=== PATIENT | female | born 1955 | race Caucasian/White ===

== ENCOUNTER → 2020-06-28 | Outpatient (CLI) | payer MEDICARE ==
--- NOTE | 2020-06-28 11:58 | KCIC ---
Bilateral digital screening mammograms with 3-D tomosynthesis: Reason for examination: Routine screening. Comparison is made to previous studies dated between 01/03/2016 and 02/06/2012. Bilateral mammograms in CC and oblique projections were obtained with 2-D imaging and 3-D tomosynthes is imaging on a Siemens Inspiration unit and reviewed on the workstation. Interpretation was made cricket murphy the benefit of CAD. The skin and nipples show no abnormalities. No abnormal axillary lymph nodes are seen. The breast par enchyma shows scattered fatty and fibroglandular density. (Breast density: Category B.) There appear to be new clustered calcifications developing anteriorly at these 1:00 position of the left breast. F urther evaluation with coned magnification views is recommended. 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 There are no other new dominant masses, suspicious calcificatio ns or architectural distortion. Impression: New clustered calcifications anteriorly in the 1:00 position of the left breast. Recommend further ev aluation with coned magnification views. BI-RAD Category 0: Incomplete. Needs additional imaging evaluation. "Our facility is accredited by the [employer] Mammography Program." This patient's information has been entered into a reminder system for the patient to be notified wit h the results of her examination and a target date for the next mammogram. Electronically signed by: Rossana Lerner MD (06/28/2020 11:56 AM) [id number]
== END ==
LOC: KCIC MAMMO 08:25
PROVIDERS: ATTEND Family Medicine
DX: Z12.31 Encounter for screening mammogram for malignant neoplasm of breast (principal); N64.89 Other specified disorders of breast
CPT/HCPCS: 77063; 77067

== ENCOUNTER → 2020-07-24 | Outpatient (CLI) | payer MEDICARE ==
[~2020-07-24] MED LIST: LIDOCAINE 2%/EPI 1:100,000 20 ML VIAL. INJ ONE
--- NOTE | 2020-07-24 10:59 | RAD ---
MG DIAGNOSTICUNILAT MAMMO, MG STERO NEEDLE LOC BRST LT Clinical Indication: Upper outer anterior left breast microcalcifications. Comparison: Diagnostic left mammogram July 04, 2020. Procedure: The risks including bleeding, infection, damage to blood vessel, and pain; alternatives, and benefits of the procedure are discussed with the patient. Written informed consent is obtained. A timeout pro cedure was performed. Patient is positioned upright. A lateral approach is utilized. 3-D mammogram views were obtained. Ski n site is clean in normal sterile fashion. 1% lidocaine is used for superficial anesthesia. 2 percent lidocaine with epinephrine is used for deep anesthesia. Using sterile technique and 3-D guidance, vacuum assisted core biopsy samples were obtained. Biopsy m arker is deployed. The needle is removed. Hemostasis achieved. Patient tolerated the procedure well. There is no immediate complication. Specimen radiograph demonstrates multiple microcalcifications in the sample. Postprocedure CC and ML mammogram views obtained. The biopsy clip is in the region of the previously seen microcalcifications. IMPRESSION: Tomosynthesis guided biopsy of microcalcifications. Pathology is pending. Electronically signed by: Giovanni Jaimes MD (07/24/2020 10:57 AM) [id number]
--- NOTE | 2020-07-25 14:08 | PATHOLOGY ---
[facility] Accession Number: [id number] . 01 Material submitted: . breast - LEFT BREAST TISSUE. Modifiers: left . 01 Clinical history: . LEFT BREAST CALCIFICATIONS . LEFT BREAST STEREOTACTIC BIOPSY . 02 Diagnosis: Breast tissue, left breast stereotactic needle biopsies: - Focal apocrine metaplasia with numerous microcalcifications. (JPM:condenser tester; 07/25/2020) MBR 07/25/2020 1205 Local . 02 Comment: Sections of the left breast stereotactic needle biopsy predominantly reveal fatty breast tissue. There are a few slightly dilated ducts and microcysts showing apocrine metaplasia. There are numerous microcalcifications within the lumen of these ducts and microcysts. There is no atypia or evidence of malignancy. (JPM:condenser tester; 07/25/2020) . 02 Electronically signed: . Himanshu Russell MD, Pathologist NPI- [id number] . 01 Gross description: . The specimen is received in formalin, labeled "Madison [place], left breast tissue". Received within a plastic cassette are multiple needle cores of fibrofatty tissue measuring 2.5 x 2.3 x 0.5 cm in aggregate dimensions. The specimen is submitted entirely in cassettes A1 through A3. The cold ischemic time is 5 minutes. The total formalin fixation time is 12 hours and 30 minutes. (CAA; 07/24/2020) QAC/QAC 07/24/2020 1523 Local . 02 Pathologist provided ICD-10: N60.82 . 02 CPT . 317171 Specimen Comment: A courtesy copy of this report has been sent to [phone], [phone] Specimen Comment: [id number] Specimen Comment: Report sent to / DR JI Performed at: [address] [facility] [address], [place], [place] [id number] MD Eric Vega MD Phone: [phone] Performed at: 02 [facility] [address] [place], [place] [id number] MD Himanshu Russell MD Phone: [phone]
== END | disposition home or self-care (01) ==
LOC: MAMMO 08:08
PROVIDERS: ATTEND Family Medicine
DX: R92.0 Mammographic microcalcification found on diagnostic imaging of breast (principal); N60.82 Other benign mammary dysplasias of left breast; Z79.899 Other long term (current) drug therapy
CPT/HCPCS: 19081; 77065; J3490

== ENCOUNTER 2020-11-25 20:55 | Observation (INO) | payer MEDICARE ==
[~2020-11-25] VITALS: Ht 157.5 cm; Wt 76.6 kg
[2020-11-25] MEDS ORDERED: ADENOSINE 6 MG/2 ML VIAL. IV ONE ×4 (21:06→22:15)
[2020-11-25] MEDS ORDERED: IV NORMAL SALINE 1000ML BAG 1,000 ML IV ONE (21:15)
[2020-11-25 21:19] LABS: BASO # 0.1 x10^3/uL (0.0-0.2); BASO % 1 % (0-3); EOS # 0.1 x10^3/uL (0.0-0.7); EOS % 1 % (0-3); HEMATOCRIT 45.8 % (36.0-47.0); HEMOGLOBIN 16.2 g/dL (12.0-15.5); LYMPH # 2.9 x10^3/uL (1.0-4.8); LYMPH % 22 % (24-48); MEAN CORPUSCULAR HEMOGLOBIN 33 pg (25-35); MEAN CORPUSCULAR HGB CONC 35 g/dL (31-37); MEAN CORPUSCULAR VOLUME 93 fL (79-100); MONO # 1.1 x10^3/uL (0.0-1.1); MONO % 8 % (0-9); NEUT % 68 % (31-73); PLATELET COUNT 268 x10^3/uL (140-400); RED BLOOD COUNT 4.96 x10^6/uL (3.50-5.40); RED CELL DISTRIBUTION WIDTH 12.9 % (11.5-14.5); WHITE BLOOD COUNT 13.3 x10^3/uL (4.0-11.0)
[2020-11-25 21:37] LABS: CALCIUM 9.3 mg/dL (8.5-10.1); CREATININE 1.1 mg/dL (0.6-1.0); GFR 49.7; POTASSIUM 3.9 mmol/L (3.5-5.1)
--- NOTE | 2020-11-25 21:40 | PHYS DOC ---
Past Medical History Past Medical History: No Pertinent History Past Surgical History: No Surgical History Smoking Status: Never Smoker Alcohol Use: None Drug Use: None General Adult EDM: Chief Complaint: RAPID HEART RATE Problems: (1) Palpitations HPI: HPI: 65-year-old female with no past medical history presents to the emergency department complaining of palpitations that occurred about 1 hour ago with sudden onset. She reports that she was feeling her normal health in the palpitations started. They are not associated with any chest pain or shortness of breath although she feels very anxious at this time. She has had similar symptoms in the past that resolved spontaneously without medical attention. She denies any alcohol or drug use. The patient denies nausea, vomiting, fever, chi lls, chest pain, shortness of breath, abdominal pain, urinary symptoms, cough, recent trauma, or any other complaints. Review of Systems: Review of Systems: Constitutional: Denies fever or chills. Eyes: Denies change in vision, pain. HENT: Denies congestion or sore throat. Respiratory: Denies cough or shortness of breath. Cardiovascular: Denies chest pain, admits to palpitations. GI: Denies abdominal pain, nausea. : Denies change in urination, dysuria. Musculoskeletal: Denies extremity pain, or trauma. Skin: Denies rash, skin change. Neurologic: Denies headache, focal weakness. Psychiatric: Denies anxiety, denies depression. All other systems reviewed as negative except for what was mentioned in the HPI. Heart Score: C/O Chest Pain: No Risk Factors: Risk Factors: DM, Current or recent (<one month) smoker, HTN, HLP, family history of CAD, obesity. Risk Scores: Score 0 - 3: 2.5% MACE over next 6 weeks - Discharge Home Score 4 - 6: 20.3% MACE over next 6 weeks - Admit for Clinical Observation Score 7 - 10: 72.7% MACE over next 6 weeks - Early Invasive Strategies Family History: Family History: Negative Current Medications: My Orders - ELFEGO JONES DO Procedure Category Date Status Time Vital Signs Monitoring ER 11/25/20 Transmitted 21:08 Blood Pressure ER 11/25/20 Transmitted Monitoring 21:08 Cardiac Monitoring ER 11/25/20 Transmitted 21:08 Basic Metabolic Panel LAB 11/25/20 In Process 21:08 Cbc W Autodiff LAB 11/25/20 Complete 21:08 Magnesium LAB 11/25/20 In Process 21:08 Thyroid Stim Hormone LAB 11/25/20 In Process (Tsh) 21:08 Portable Chest 1v RAD 11/25/20 Logged 21:08 Lorazepam Inj (Ativan PHA 11/25/20 Complete Inj) 21:15 Nt-Pro Bnp LAB 11/25/20 In Process 21:08 Troponini LAB 11/25/20 In Process 21:08 Troponini LAB 11/26/20 Verified 00:08 Troponini LAB 11/26/20 Verified 03:08 12 Lead Ekg EKG 11/25/20 Logged 21:08 12 Lead Ekg EKG 11/25/20 Logged 21:38 Adenosine (Adenocard) PHA 11/25/20 Complete 21:15 Iv Normal Saline PHA 11/25/20 In Process 1000ml Bag (Iv Sodium 21:15 Diltiazem Iv Push PHA 11/25/20 Logged (Cardizem Iv Push) 21:30 Allergies: Allergies: Allergies Coded Allergies Type Severity Reaction Last Updated Verified No Known Drug Allergies 07/24/20 No Physical Exam: PE: Constitutional: Moderate distress, appears anxious, nontoxic appearance. HENT: Atraumatic, bilateral external ears normal, nose normal. Eyes: PERRLA, EOMI, conjunctiva normal, no discharge. Neck: Normal range of motion, supple, no stridor. Cardiovascular: Markedly tachycardic, 1+ radial pulses capillary refill less than 2 seconds Lungs & Thorax: No respiratory distress, symmetrical expansion. Bilateral breath sounds clear to auscultation Abdomen: Soft, no tenderness Skin: Warm, dry. Extremities: No tenderness, no cyanosis, ROM intact, no edema. Neurologic: Alert and oriented X 3, normal motor function, normal sensory function, no focal deficits noted. Non ataxic gait. GCS 15. Psychologic: Affect normal, judgment normal, mood normal. Current Patient Data: Labs: Laboratory Tests Test 11/25/20 21:10 White Blood Count 13.3 x10^3/uL (4.0-11.0) Red Blood Count 4.96 x10^6/uL (3.50-5.40) Hemoglobin 16.2 g/dL (12.0-15.5) Hematocrit 45.8 % (36.0-47.0) Mean Corpuscular Volume 93 fL (79-100) Mean Corpuscular Hemoglobin 33 pg (25-35) Mean Corpuscular Hemoglobin Concent 35 g/dL (31-37) Red Cell Distribution Width 12.9 % (11.5-14.5) Platelet Count 268 x10^3/uL (140-400) Neutrophils (%) (Auto) 68 % (31-73) Lymphocytes (%) (Auto) 22 % (24-48) Monocytes (%) (Auto) 8 % (0-9) Eosinophils (%) (Auto) 1 % (0-3) Basophils (%) (Auto) 1 % (0-3) Neutrophils # (Auto) 9.0 x10^3/uL (1.8-7.7) Lymphocytes # (Auto) 2.9 x10^3/uL (1.0-4.8) Monocytes # (Auto) 1.1 x10^3/uL (0.0-1.1) Eosinophils # (Auto) 0.1 x10^3/uL (0.0-0.7) Basophils # (Auto) 0.1 x10^3/uL (0.0-0.2) Sodium Level 141 mmol/L (136-145) Potassium Level 3.9 mmol/L (3.5-5.1) Chloride Level 104 mmol/L (98-107) Carbon Dioxide Level 23 mmol/L (21-32) Anion Gap 14 (6-14) Blood Urea Nitrogen 24 mg/dL (7-20) Creatinine 1.1 mg/dL (0.6-1.0) Estimated GFR (Cockcroft-Gault) 49.7 Glucose Level 236 mg/dL (70-99) Calcium Level 9.3 mg/dL (8.5-10.1) Magnesium Level 2.0 mg/dL (1.8-2.4) Troponin I Quantitative < 0.017 ng/mL (0.000-0.055) JA-Ahk-L-Type Natriuretic Peptide 133 pg/mL (0-124) Thyroid Stimulating Hormone (TSH) 3.670 uIU/mL (0.358-3.74) Vital Signs: Vital Signs Date Time Temp Pulse Resp B/P (MAP) Pulse Ox O2 Delivery O2 Flow Rate FiO2 11/25/20 21:21 215 147/77 EKG: EK: Supraventricular narrow complex tachycardia rate of 216. Impression: SVT interpreted by Elfego miller DO 2124: Conversion to normal sinus rhythm after diltiazem was noted, there are no ischemic ST-T wave changes. Interpreted by me Elfego Jones DO . Radiology/Procedures: Radiology/Procedures: No airspace disease, infiltrates or consolidations, lung parker clear. No pneumothorax or pleural effusion. Cardiac silhouette within normal limits. No widening of mediastinum. No obvious free air seen. Impression: normal CXR. Interpreted by Elfego miller D.O. Course & Med Decision Making: Course & Med Decision Making Patient was seen immediately upon entrance to the emergency department for a rapid heart rate over 200. An EKG was emergently obtained which showed a narrow complex supraventricular tachycardia at regular intervals. She was immediately placed on the pads, laboratory monitor, her blood pressure within normal limits, she was protecting her airway with GCS 15. Vagal maneuvers including bearing down, blowing into a syringe were attempted and unsuccessful. Patient had bilateral AC large-bore IVs placed. Adenosine 6 mg was attempted and was unsuccessful, 12 mg was then attempted and also unsuccessful. The patient was then given diltiazem 15 mg IV slow push with good results. court monitor shows conversion to normal sinus rhythm less than 100 bpm, EKG confirms with no ischemic changes seen. I discussed case with Dr. Hedrick who accepted the patient to telemetry monitored bed. Cardiology consult was placed. Patient remained stable after diltiazem and remains on the laboratory monitor. Cardioversion Procedure: Consent: The patient provided verbal consent for this procedure. Pre-Medication: None Procedure: The patient was placed in the supine position and the chest area was exposed. The cardioversion pads were applied in the standard manner and configuration. The patient was given adenosine 6 mg IV which was unsuccessful and then she was given 12 mg IV which was also unsuccessful. She was then given Cardizem 15 mg IV push which was successful with resolution to normal sinus rhythm. Blood pressure remained stable during the procedure. The patient tolerated the procedure well. Complications: none. Indication: Supraventricular tachycardia, narrow complex. Critical care time was 40 minutes which includes time at bedside, spent in discussion of patient's care with specialists and/or family members, with interpretation of laboratory and/or radiological studies and is exclusive of procedures. Departure Departure Impression: Primary Impression: SVT (supraventricular tachycardia) Disposition: ADMITTED INPATIENT (Dr. Hedrick) Condition: IMPROVED Referrals: NATHALIE JUARES MD (PCP) ELFEGO JONES DO Nov 25, 2020 21:40
[2020-11-25] MEDS ORDERED: ONDANSETRON PF 4 MG/2 ML VIAL. IVP PRN (21:45)
[2020-11-25] MEDS ORDERED: ACETAMINOPHEN 325 MG TABLET. PO PRN (21:45)
--- NOTE | 2020-11-25 22:19 | EKG ---
[facility] [address] [place] [address] Test Date: 2020-11-25 Test Time: 21:25:52 Pat Name: RICKIE PEREZ Department: Room: Gender: F [employer]: : 1955 Requested By: JOJO BRAVO Order Number: [id number] Reading MD: Measurements Intervals [place] Rate: 97 P: -26 [place]: 160 QRS: 16 QRSD: 72 T: 70 QT: 312 QTc: 400 Interpretive Statements SINUS RHYTHM ST & T ABNORMALITY, CONSIDER ANTEROLATERAL ISCHEMIA OR LEFT VENTRICULAR STRAIN ABNORMAL ECG RI6.02 Compared to ECG 11/25/2020 21:24:18 No significant changes
--- NOTE | 2020-11-25 22:36 | RAD ---
Exam Date: 11/25/2020 9:31 PM XR CHEST 1V Indication: Reason: palpitations / Spl. Instructions: / History: . FINDINGS/ IMPRESSION: The cardiac silhouette and pulmonary vasculature are within normal limits. There is no focal consolidation, pleural effusion or pneumothorax. The visualized osseous structures are intact. Electronically signed by: Damian Orellana MD (11/25/2020 10:33 PM) [facility]
[2020-11-26 03:53] LABS: BASO % 1 % (0-3); EOS # 0.1 x10^3/uL (0.0-0.7); EOS % 1 % (0-3); HEMATOCRIT 38.5 % (36.0-47.0); HEMOGLOBIN 13.7 g/dL (12.0-15.5); LYMPH # 2.5 x10^3/uL (1.0-4.8); LYMPH % 29 % (24-48); MEAN CORPUSCULAR HEMOGLOBIN 33 pg (25-35); MEAN CORPUSCULAR HGB CONC 36 g/dL (31-37); MEAN CORPUSCULAR VOLUME 92 fL (79-100); MONO % 12 % (0-9); NEUT % 58 % (31-73); PLATELET COUNT 194 x10^3/uL (140-400); RED BLOOD COUNT 4.18 x10^6/uL (3.50-5.40); RED CELL DISTRIBUTION WIDTH 12.8 % (11.5-14.5); WHITE BLOOD COUNT 8.5 x10^3/uL (4.0-11.0)
[2020-11-26 04:04] LABS: CALCIUM 8.3 mg/dL (8.5-10.1); CREATININE 0.8 mg/dL (0.6-1.0); GFR 71.8; POTASSIUM 4.1 mmol/L (3.5-5.1)
--- NOTE | 2020-11-26 07:36 | PDOC1 ---
History and Physical Date of Service: DOS: DATE: 11/26/20 TIME: 07:31 Chief Complaint: Chief Complain: palpitations History of Present Illness: HPI: 65-year-old female with no past medical history presents to the emergency department complaining of palpitations that occurred about 1 hour ago with sudden onset. She reports that she was feeling her normal health in the palpitations started. They are not associated with any chest pain or shortness of breath although she feels very anxious at this time. In the past patient had similar episodes about 2 years ago on 2 occasions. All of those episodes where she had similar symptoms reverted spontaneously without any medication. She denies any alcohol or drug use. The patient denies nausea, vomiting, fever, chills, chest pain, shortness of breath, abdominal pain, urinary symptoms, cough, recent trauma, or any other complaints. ED course: Patient was seen immediately upon entrance to the emergency department for a rapid heart rate over 200. An EKG was emergently obtained w hich showed a narrow complex supraventricular tachycardia at regular intervals. She was immediately placed on the pads, school lunch monitor, her blood pressure within normal limits. Vagal maneuvers including bearing down, blowing into a syringe were attempted and unsuccessful. Patient had bilateral AC large-bore IVs placed. Adenosine 6 mg was attempted and was unsuccessful, 12 mg was then attempted and also unsuccessful. The patient was then given diltiazem 15 mg IV slow push with good results. engine monitor shows conversion to normal sinus rhythm less than 100 bpm, EKG confirms with no ischemic changes seen. Admitted to hospitalist services and cardiology was consulted. Past Medical/Surgical History: PMH/PSH: Past Medical History: Migraines Past Surgical History: No Surgical History Allergies: Allergies: Coded Allergies: No Known Drug Allergies (Unverified , 07/24/20) Family History: Family History: Reviewed with no relevant history Social History: Social History: Smoking Status: Never Smoker Alcohol Use: None Drug Use: None Current Medications: Current Medications Current Medications Adenosine (Adenocard) 6 mg STK-MED ONCE IV ; Start 11/25/20 at 21:06; Stop 11/25/20 at 21:06; Status DC Adenosine (Adenocard) 6 mg STK-MED ONCE IV ; Start 11/25/20 at 21:06; Stop 11/25/20 at 21:06; Status DC Lorazepam (Ativan Inj) 1 mg 1X ONCE IV ; Start 11/25/20 at 21:15; Stop 11/25/20 at 21:29; Status DC Adenosine (Adenocard) 6 mg 1X ONCE IV Last administered on 11/25/20at 21:14; Start 11/25/20 at 21:15; Stop 11/25/20 at 21:16; Status DC Sodium Chloride 1,000 ml @ 1,000 mls/hr 1X ONCE IV Last administered on 11/25/20at 21:30; Start 11/25/20 at 21:15; Stop 11/25/20 at 22:14; Status DC Diltiazem HCl (Cardizem Iv Push) 25 mg STK-MED ONCE .ROUTE ; Start 11/25/20 at 21:18; Stop 11/25/20 at 21:19; Status DC Diltiazem HCl (Cardizem Iv Push) 15 mg 1X ONCE IVP Last administered on 11/25/20at 21:21; Start 11/25/20 at 21:30; Stop 11/25/20 at 21:34; Status DC Ondansetron HCl (Zofran) 4 mg PRN Q8HRS PRN IVP NAUSEA/VOMITING; Start 11/25/20 at 21:45; Stop 11/26/20 at 21:44 Acetaminophen (Tylenol) 650 mg PRN Q4HRS PRN PO FEVER > 100.3'F; Start 11/25/20 at 21:45; Stop 11/26/20 at 21:44 Adenosine (Adenocard) 12 mg 1X ONCE IV Last administered on 11/25/20at 21:17; Start 11/25/20 at 22:15; Stop 11/25/20 at 22:16; Status DC Enoxaparin Sodium (Lovenox Per Pharmacy Prophylaxis Dosing) 1 each PRN DAILY PRN MC SEE COMMENTS; Start 11/25/20 at 22:30 Enoxaparin Sodium (Lovenox 40mg Syringe) 40 mg DAILY SQ ; Start 11/26/20 at 09:00 ROS: Review of Systems Review of System REVIEW OF SYSTEMS: GENERAL: Denies weakness SKIN: No bruising, hair changes or rashes. EYES: No blurred, double or loss of vision. NOSE AND THROAT: No history of nosebleeds, hoarseness or sore throat. HEART: No history of palpitations, chest pain or shortness of breath on exertion. LUNGS: Denies cough, hemoptysis, wheezing or shortness of breath. GASTROINTESTINAL: Denies changes in appetite, nausea, vomiting, diarrhea or constipation. GENITOURINARY: No history of frequency, urgency, hesitancy or nocturia. NEUROLOGIC: Denies history of numbness, tingling, or tremor. PSYCHIATRIC: No history of panic, anxiety or depression. ENDOCRINE: No history of heat or cold intolerance, polyuria or polydipsia. EXTREMITIES: Denies joint pain, pain on walking or stiffness. Physical Exam: Vital Signs: Vital Signs Date Time Temp Pulse Resp B/P (MAP) Pulse Ox O2 Delivery O2 Flow Rate FiO2 11/26/20 07:01 78 20 96 11/25/20 21:21 147/77 11/25/20 20:55 98.4 Room Air 98.4 Physcial Exam: General: Well developed, well nourished, no acute distress, well appearing HEENT: Pupils equally round and reactive to light, EOMI, no discharge, normal conjunctiva Neck: Supple, no nuchal rigidity, no JVD, trachea midline, no tenderness Cardiac: RRR, no murmurs, no gallops, no rubs Chest/Lungs: CTAB, no wheeze, no rhonchi, no crackles Abdomen: soft, non-distended, no guarding, no peritoneal signs, non-tender Back: No tenderness Extremities: no edema, pulses intact, non-tender,capillary refill <3 sec bilateral upper and lower extremities, Neuro: Alert and oriented x 4, no focal deficits, normal speech Labs: Labs: Laboratory Tests Test 11/25/20 21:10 11/25/20 22:55 11/26/20 00:30 11/26/20 03:20 White Blood Count 13.3 x10^3/uL (4.0-11.0) 8.5 x10^3/uL (4.0-11.0) Red Blood Count 4.96 x10^6/uL (3.50-5.40) 4.18 x10^6/uL (3.50-5.40) Hemoglobin 16.2 g/dL (12.0-15.5) 13.7 g/dL (12.0-15.5) Hematocrit 45.8 % (36.0-47.0) 38.5 % (36.0-47.0) Mean Corpuscular Volume 93 fL (79-100) 92 fL (79-100) Mean Corpuscular Hemoglobin 33 pg (25-35) 33 pg (25-35) Mean Corpuscular Hemoglobin Concent 35 g/dL (31-37) 36 g/dL (31-37) Red Cell Distribution Width 12.9 % (11.5-14.5) 12.8 % (11.5-14.5) Platelet Count 268 x10^3/uL (140-400) 194 x10^3/uL (140-400) Neutrophils (%) (Auto) 68 % (31-73) 58 % (31-73) Lymphocytes (%) (Auto) 22 % (24-48) 29 % (24-48) Monocytes (%) (Auto) 8 % (0-9) 12 % (0-9) Eosinophils (%) (Auto) 1 % (0-3) 1 % (0-3) Basophils (%) (Auto) 1 % (0-3) 1 % (0-3) Neutrophils # (Auto) 9.0 x10^3/uL (1.8-7.7) 5.0 x10^3/uL (1.8-7.7) Lymphocytes # (Auto) 2.9 x10^3/uL (1.0-4.8) 2.5 x10^3/uL (1.0-4.8) Monocytes # (Auto) 1.1 x10^3/uL (0.0-1.1) 1.0 x10^3/uL (0.0-1.1) Eosinophils # (Auto) 0.1 x10^3/uL (0.0-0.7) 0.1 x10^3/uL (0.0-0.7) Basophils # (Auto) 0.1 x10^3/uL (0.0-0.2) 0.0 x10^3/uL (0.0-0.2) Sodium Level 141 mmol/L (136-145) 145 mmol/L (136-145) Potassium Level 3.9 mmol/L (3.5-5.1) 4.1 mmol/L (3.5-5.1) Chloride Level 104 mmol/L (98-107) 112 mmol/L (98-107) Carbon Dioxide Level 23 mmol/L (21-32) 24 mmol/L (21-32) Anion Gap 14 (6-14) 9 (6-14) Blood Urea Nitrogen 24 mg/dL (7-20) 21 mg/dL (7-20) Creatinine 1.1 mg/dL (0.6-1.0) 0.8 mg/dL (0.6-1.0) Estimated GFR (Cockcroft-Gault) 49.7 71.8 Glucose Level 236 mg/dL (70-99) 98 mg/dL (70-99) Calcium Level 9.3 mg/dL (8.5-10.1) 8.3 mg/dL (8.5-10.1) Magnesium Level 2.0 mg/dL (1.8-2.4) Troponin I Quantitative < 0.017 ng/mL (0.000-0.055) 0.530 ng/mL (0.000-0.055) 1.176 ng/mL (0.000-0.055) DY-Szv-T-Type Natriuretic Peptide 133 pg/mL (0-124) Thyroid Stimulating Hormone (TSH) 3.670 uIU/mL (0.358-3.74) SARS-CoV-2 Antigen (Rapid) Negative (NEGATIVE) Laboratory Tests Test 11/25/20 21:10 11/25/20 22:55 11/26/20 00:30 11/26/20 03:20 White Blood Count 13.3 x10^3/uL (4.0-11.0) 8.5 x10^3/uL (4.0-11.0) Red Blood Count 4.96 x10^6/uL (3.50-5.40) 4.18 x10^6/uL (3.50-5.40) Hemoglobin 16.2 g/dL (12.0-15.5) 13.7 g/dL (12.0-15.5) Hematocrit 45.8 % (36.0-47.0) 38.5 % (36.0-47.0) Mean Corpuscular Volume 93 fL (79-100) 92 fL (79-100) Mean Corpuscular Hemoglobin 33 pg (25-35) 33 pg (25-35) Mean Corpuscular Hemoglobin Concent 35 g/dL (31-37) 36 g/dL (31-37) Red Cell Distribution Width 12.9 % (11.5-14.5) 12.8 % (11.5-14.5) Platelet Count 268 x10^3/uL (140-400) 194 x10^3/uL (140-400) Neutrophils (%) (Auto) 68 % (31-73) 58 % (31-73) Lymphocytes (%) (Auto) 22 % (24-48) 29 % (24-48) Monocytes (%) (Auto) 8 % (0-9) 12 % (0-9) Eosinophils (%) (Auto) 1 % (0-3) 1 % (0-3) Basophils (%) (Auto) 1 % (0-3) 1 % (0-3) Neutrophils # (Auto) 9.0 x10^3/uL (1.8-7.7) 5.0 x10^3/uL (1.8-7.7) Lymphocytes # (Auto) 2.9 x10^3/uL (1.0-4.8) 2.5 x10^3/uL (1.0-4.8) Monocytes # (Auto) 1.1 x10^3/uL (0.0-1.1) 1.0 x10^3/uL (0.0-1.1) Eosinophils # (Auto) 0.1 x10^3/uL (0.0-0.7) 0.1 x10^3/uL (0.0-0.7) Basophils # (Auto) 0.1 x10^3/uL (0.0-0.2) 0.0 x10^3/uL (0.0-0.2) Sodium Level 141 mmol/L (136-145) 145 mmol/L (136-145) Potassium Level 3.9 mmol/L (3.5-5.1) 4.1 mmol/L (3.5-5.1) Chloride Level 104 mmol/L (98-107) 112 mmol/L (98-107) Carbon Dioxide Level 23 mmol/L (21-32) 24 mmol/L (21-32) Anion Gap 14 (6-14) 9 (6-14) Blood Urea Nitrogen 24 mg/dL (7-20) 21 mg/dL (7-20) Creatinine 1.1 mg/dL (0.6-1.0) 0.8 mg/dL (0.6-1.0) Estimated GFR (Cockcroft-Gault) 49.7 71.8 Glucose Level 236 mg/dL (70-99) 98 mg/dL (70-99) Calcium Level 9.3 mg/dL (8.5-10.1) 8.3 mg/dL (8.5-10.1) Magnesium Level 2.0 mg/dL (1.8-2.4) Troponin I Quantitative < 0.017 ng/mL (0.000-0.055) 0.530 ng/mL (0.000-0.055) 1.176 ng/mL (0.000-0.055) GC-Ytg-M-Type Natriuretic Peptide 133 pg/mL (0-124) Thyroid Stimulating Hormone (TSH) 3.670 uIU/mL (0.358-3.74) SARS-CoV-2 Antigen (Rapid) Negative (NEGATIVE) Images: Images CXR Impression: 1. No acute cardiopulmonary process. Assessment/Plan Assessment/Plan Supraventricular tachycardia YE due to vasomotor nephropathy Elevated troponins, type II demand ischemia History of migraines Obesity class I Admit to hospital service for further management Continue telemetry monitoring Cardiology consult Pending TTE to assess LV function Pending TSH and lipid panel Continue aspirin Lovenox for DVT prophylaxis Pepcid GI prophylaxis ADA diet Full code Discussed with RN and SW Disposition inpatient management as above Surrogate decision maker is In addition to my E/M visit, advance care planning done with A total time of 20 minutes was spent from 1:00 to 120 face to face in discussion with the patient and family regarding their goals of care, CODE STATUS. Justifications for Admission Other Justification JASVIR CARL MD Nov 26, 2020 07:36
[2020-11-26] MEDS ORDERED: ENOXAPARIN 40 MG/0.4 ML SYRINGE. SQ SCH ×2 (09:00→16:30)
[2020-11-26] MEDS ORDERED: ASPIRIN CHEWABLE 81 MG TABLET. PO ONE (12:15)
--- NOTE | 2020-11-26 12:15 | PDOC2 ---
JORGITO RANDALL DOUGH MOLDER HAND 11/26/20 1215: CARDIAC CONSULT DATE OF CONSULT Date of Consult DATE: 11/26/20 TIME: 12:05 REASON FOR CONSULT Reason for Consult: SVT s/p CV REFERRING PHYSICIAN Referring Physician: DR. Jones SOURCE Source: Chart review, Patient HISTORY OF PRESENT ILLNESS HISTORY OF PRESENT ILLNESS This is a 65 yo female who presented secondary to palpitations. HR was > 200bmp upon arrival to ED. Vagal maneuvers attempted without resolution. Adenosine 6mg, followed by additional 12mg administered without improvement in HR. Cardizem IV bolus was then administered, which slowed HR and patient convert back to SR. Patient reports symptoms began yesterday evening while she was washing dishes. Began having palpitation in her central chest. Could tell her heart was beating fast. Began feeling lightheaded, dizzy. Sat down and tried to relax but continued to feel heart race so she came into the ED for further evaluation and treatment. She denies any chest pain, SOA, diaphoresis, or nausea/vomiting. Has maintained SR overnight. Patient reports this occurred approximately 2 years ago, but resolved without intervention. Has EKG conducted at primary care office, which did not show any acute tachyarrhythmias. PAST MEDICAL HISTORY Cardiovascular: No pertinent hx Pulmonary: No pertinent hx GI: No pertinent hx Heme/Onc: No pertinent hx Rheumatologic: No pertinent hx Infectious disease: No pertinent hx ENT: No pertinent hx Renal/: No pertinent hx Endocrine: No pertinent hx PAST SURGICAL HISTORY Past Surgical History: No pertinent history FAMILY HISTORY Family History: Hypertension SOCIAL HISTORY Smoke: No ALCOHOL: none Drugs: None Lives: with Family CURRENT MEDICATIONS CURRENT MEDICATIONS Current Medications Medications (Trade) Dose Ordered Sig/Nasir Route PRN Reason Start Time Stop Time Status Last Admin Dose Admin Adenosine (Adenocard) 6 mg 1X ONCE IV 11/25/20 21:15 11/25/20 21:16 DC 11/25/20 21:14 Sodium Chloride 1,000 ml @ 1,000 mls/hr 1X ONCE IV 11/25/20 21:15 11/25/20 22:14 DC 11/25/20 21:30 Diltiazem HCl (Cardizem Iv Push) 15 mg 1X ONCE IVP 11/25/20 21:30 11/25/20 21:34 DC 11/25/20 21:21 Acetaminophen (Tylenol) 650 mg PRN Q4HRS PRN PO FEVER > 100.3'F 11/25/20 21:45 11/26/20 21:44 11/26/20 08:56 Adenosine (Adenocard) 12 mg 1X ONCE IV 11/25/20 22:15 11/25/20 22:16 DC 11/25/20 21:17 Enoxaparin Sodium (Lovenox 40mg Syringe) 40 mg DAILY SQ 11/26/20 09:00 11/26/20 09:06 ALLERGIES ALLERGIES: Coded Allergies: No Known Drug Allergies (Unverified , 07/24/20) ROS Review of System 14 point ROS conducted with pertinent positives noted above in HPI PHYSICAL EXAM General: Alert, Oriented X3, Cooperative, No acute distress HEENT: Atraumatic Lungs: Clear to auscultation Heart: Regular rate Abdomen: Soft, No tenderness Extremities: No edema, Normal pulses Skin: No significant lesion Neuro: Normal speech, Sensation intact Psych/Mental Status: Mental status NL, Mood NL MUSCULOSKELETAL: Osteoarthritic changes both hands VITALS/I&O VITALS/I&O: Vital Signs Date Time Temp Pulse Resp B/P (MAP) Pulse Ox O2 Delivery O2 Flow Rate FiO2 11/26/20 09:07 71 20 98 11/25/20 21:21 147/77 11/25/20 20:55 98.4 Room Air 98.4 LABS Lab: Laboratory Tests Test 11/25/20 21:10 11/25/20 22:55 11/26/20 00:30 11/26/20 03:20 White Blood Count 13.3 x10^3/uL (4.0-11.0) H 8.5 x10^3/uL (4.0-11.0) Red Blood Count 4.96 x10^6/uL (3.50-5.40) 4.18 x10^6/uL (3.50-5.40) Hemoglobin 16.2 g/dL (12.0-15.5) H 13.7 g/dL (12.0-15.5) Hematocrit 45.8 % (36.0-47.0) 38.5 % (36.0-47.0) Mean Corpuscular Volume 93 fL (79-100) 92 fL (79-100) Mean Corpuscular Hemoglobin 33 pg (25-35) 33 pg (25-35) Mean Corpuscular Hemoglobin Concent 35 g/dL (31-37) 36 g/dL (31-37) Red Cell Distribution Width 12.9 % (11.5-14.5) 12.8 % (11.5-14.5) Platelet Count 268 x10^3/uL (140-400) 194 x10^3/uL (140-400) Neutrophils (%) (Auto) 68 % (31-73) 58 % (31-73) Lymphocytes (%) (Auto) 22 % (24-48) L 29 % (24-48) Monocytes (%) (Auto) 8 % (0-9) 12 % (0-9) H Eosinophils (%) (Auto) 1 % (0-3) 1 % (0-3) Basophils (%) (Auto) 1 % (0-3) 1 % (0-3) Neutrophils # (Auto) 9.0 x10^3/uL (1.8-7.7) H 5.0 x10^3/uL (1.8-7.7) Lymphocytes # (Auto) 2.9 x10^3/uL (1.0-4.8) 2.5 x10^3/uL (1.0-4.8) Monocytes # (Auto) 1.1 x10^3/uL (0.0-1.1) 1.0 x10^3/uL (0.0-1.1) Eosinophils # (Auto) 0.1 x10^3/uL (0.0-0.7) 0.1 x10^3/uL (0.0-0.7) Basophils # (Auto) 0.1 x10^3/uL (0.0-0.2) 0.0 x10^3/uL (0.0-0.2) Sodium Level 141 mmol/L (136-145) 145 mmol/L (136-145) Potassium Level 3.9 mmol/L (3.5-5.1) 4.1 mmol/L (3.5-5.1) Chloride Level 104 mmol/L (98-107) 112 mmol/L (98-107) H Carbon Dioxide Level 23 mmol/L (21-32) 24 mmol/L (21-32) Anion Gap 14 (6-14) 9 (6-14) Blood Urea Nitrogen 24 mg/dL (7-20) H 21 mg/dL (7-20) H Creatinine 1.1 mg/dL (0.6-1.0) H 0.8 mg/dL (0.6-1.0) Estimated GFR (Cockcroft-Gault) 49.7 71.8 Glucose Level 236 mg/dL (70-99) H 98 mg/dL (70-99) Calcium Level 9.3 mg/dL (8.5-10.1) 8.3 mg/dL (8.5-10.1) L Magnesium Level 2.0 mg/dL (1.8-2.4) Troponin I Quantitative < 0.017 ng/mL (0.000-0.055) 0.530 ng/mL (0.000-0.055) 1.176 ng/mL (0.000-0.055) ZD-Ffo-C-Type Natriuretic Peptide 133 pg/mL (0-124) H Thyroid Stimulating Hormone (TSH) 3.670 uIU/mL (0.358-3.74) SARS-CoV-2 RNA (TOMEKA) Negative (Negative) SARS-CoV-2 Antigen (Rapid) Negative (NEGATIVE) Laboratory Tests 11/25/20 21:10 11/26/20 03:20 Laboratory Tests 11/25/20 21:10 11/26/20 03:20 ASSESSMENT/PLAN ASSESSMENT/PLAN 1. Tachyarrhythmia, SVT; 6mg, 12mg adenosine unsuccessful. Converted back to SR following Cardizem IV bolus. Unable to located initial EKG upon arrival. 2. NSTEMI; trop highest 1.1. Most probably type II, demand ischemia secondary to above. CP free Recommendations ASA Trend trop Lipids, TSH Obtain initial EKG in ED Treatment dosing Lovenox for NSTEMI Add metoprolol for rate control Echo to assess LV systolic function Outpatient ischemic evaluation and event monitor Supportive care CAIT LOERA MD 11/27/20 1210: CARDIAC CONSULT ASSESSMENT/PLAN ASSESSMENT/PLAN Patient seen and examined on 11/26/20 I agree with our nurse practitioners assessment and plan. Tachyarrhythmia, SVT; 6mg, 12mg adenosine unsuccessful. Converted back to SR following Cardizem IV bolus. Unable to located initial EKG upon arrival. Continue Lovenox and beta-blockers. Continuing monitoring. Check TSH. Possible outpatient monitor. NSTEMI; trop highest 1.1. Most consistent with demand ischemia. No chest pain. No acute ischemic EKG changes. Continue on Lovenox and trend troponin. Aspirin. Echocardiogram for LV function. Possible outpatient ischemia evaluation based on clinical course. Possible hyperlipidemia. Check lipid panel. JORGITO RANDALL APRN Nov 26, 2020 12:15 CAIT LOERA MD Nov 27, 2020 12:10
[2020-11-26 15:00] VITALS: BP 176/99
[2020-11-26] MEDS ORDERED: SUMA50TA3 PO (15:18)
[2020-11-26] MEDS ORDERED: CYCL5TAB PO (15:18)
[2020-11-26] MEDS ORDERED: ASA/APAP/CAFFEINE 250/250/65MG TABLET. PO PRN (16:30)
[2020-11-26] MEDS ORDERED: ACETAMINOPHEN 325 MG TABLET. PO PRN (16:30)
[2020-11-26] MEDS ORDERED: DOCUSATE SODIUM 100 MG CAPSULE. PO PRN (16:30)
[2020-11-26] MEDS ORDERED: ONDANSETRON PF 4 MG/2 ML VIAL. IVP PRN (16:30)
[2020-11-26] MEDS ORDERED: CYCLOBENZAPRINE 10 MG TABLET. PO PRN (16:30)
[2020-11-26] MEDS ORDERED: PROCHLORPERAZINE 10 MG/2 ML VIAL. IV PRN (16:30)
[2020-11-26] MEDS ORDERED: DEXTROSE 50% 25 GM / 50ML DISP.SYRIN. IV PRN (16:30)
[2020-11-26] MEDS ORDERED: SENNOSIDES 8.6 MG TABLET PO PRN (16:30)
--- NOTE | 2020-11-26 16:55 | CARD ---
MR#: [id number] Date of Study: 11/26/2020 Ordering Physician: JORGITO RANDALL, Referring Physician: JORGITO RANDALL, Tawnya: Jae Bright [facility] APPROV[facility] REPORT EXAM: Two-dimensional and M-mode echocardiogram with Doppler and color Doppler. Other Information Quality : AverageHR: 77bpm Rhythm : NSR INDICATION Palpitations SVT 2D DIMENSIONS Left Atrium(2D)3.3 (1.6-4.0cm)IVSd1.1 (0.7-1.1cm) Aortic Root(2D)3.9 (2.0-3.7cm)LVDd4.0 (3.9-5.9cm) LVOT Diameter2.0 (1.8-2.4cm)PWd1.2 (0.7-1.1cm) LVDs2.3 (2.5-4.0cm)FS (%) 42.7 % SV51.1 mlLVEF(%)74.4 (>50%) Aortic Valve AoV Peak Soren.117.2cm/sAoV VTI22.4cm AO Peak GR.5.5mmHgLVOT Peak Soren.95.9cm/s AO Mean GR.3mmHgAVA (VMAX)2.52cm2 Mitral Valve MV E Efsgzvwg765.8cm/sMV E Peak Gr.4mmHg MV DECEL [id number] A Hggwueev34.0cm/s MV E Mean Gr.1mmHgE/A Ratio1.0 Pulmonary Valve PV Peak Upoxpams75.2cm/s Tricuspid Valve TR P. Ovoesyes787pa/sTR Peak Gr.34mmHg Pulmonary Vein S1 Pwlwzwdb07.8cm/sD2 Ywmzptui12.4cm/s LEFT VENTRICLE The left ventricle is normal size. There is borderline concentric left ventricular hypertrophy. The l eft ventricular systolic function is normal. The ejection fraction is 60-65%. There is normal LV segm ental wall motion. No left ventricle thrombus noted on this study. There is no ventricular septal def ect visualized. There is no left ventricular aneurysm. There is no mass noted in the left ventricle. RIGHT VENTRICLE The right ventricle is normal size. There is normal right ventricular wall thickness. The right ventr icular systolic function is normal. ATRIA The left atrium size is normal. The right atrium size is normal. The interatrial septum is intact wit h no evidence for an atrial septal defect or patent foramen ovale as noted on 2-D or Doppler imaging. AORTIC VALVE The aortic valve is mildly sclerotic. Doppler and Color Flow revealed no significant aortic regurgita tion. There is no significant aortic valvular stenosis. There is no aortic valvular vegetation. MITRAL VALVE The mitral valve is normal in structure and function. There is no evidence of mitral valve prolapse. There is no mitral valve stenosis. Doppler and Color-flow revealed mild mitral regurgitation. TRICUSPID VALVE The tricuspid valve is normal in structure and function. Doppler and Color Flow revealed mild tricusp id regurgitation. There is no tricuspid valve prolapse or vegetation. There is no tricuspid valve maurilio nosis. PULMONIC VALVE The pulmonary valve is normal in structure and function. Trivial pulmonic regurgitation There is no p ulmonic valvular stenosis. GREAT VESSELS The aortic root is normal in size. The ascending aorta is normal in size. The pulmonary artery is nor mal. The IVC is normal in size and collapses >50% with inspiration. PERICARDIAL EFFUSION There is no pleural effusion. There is no evidence of significant pericardial effusion. Critical Notification Critical Value: No <Conclusion> The left ventricular systolic function is normal. The ejection fraction is 60-65%. There is normal LV segmental wall motion. Mild mitral regurgitation. Mild tricuspid regurgitation. There is no evidence of significant pericardial effusion. Signed by : Josh Duke, Electronically Approved : 11/26/2020 16:55:16
[2020-11-26 19:45] VITALS: BP 165/95
[2020-11-26] MEDS: FAMOTIDINE 20 MG TABLET. PO SCH (21:22)
[2020-11-26] MEDS: METOPROLOL TART IMMED RELEASE 25 MG TABLET. PO SCH (21:22)
[2020-11-26 22:50] VITALS: BP 163/71
[2020-11-27 02:45] VITALS: BP 123/75
[2020-11-27 07:00] VITALS: BP 138/87
[2020-11-27 07:05] LABS: BASO # 0.1 x10^3/uL (0.0-0.2); BASO % 1 % (0-3); EOS # 0.1 x10^3/uL (0.0-0.7); EOS % 1 % (0-3); HEMATOCRIT 40.7 % (36.0-47.0); HEMOGLOBIN 14.1 g/dL (12.0-15.5); LYMPH # 2.5 x10^3/uL (1.0-4.8); LYMPH % 44 % (24-48); MEAN CORPUSCULAR HEMOGLOBIN 32 pg (25-35); MEAN CORPUSCULAR HGB CONC 35 g/dL (31-37); MEAN CORPUSCULAR VOLUME 91 fL (79-100); MONO # 0.7 x10^3/uL (0.0-1.1); MONO % 11 % (0-9); NEUT # 2.4 x10^3/uL (1.8-7.7); NEUT % 42 % (31-73); PLATELET COUNT 216 x10^3/uL (140-400); RED BLOOD COUNT 4.45 x10^6/uL (3.50-5.40); RED CELL DISTRIBUTION WIDTH 13.1 % (11.5-14.5); WHITE BLOOD COUNT 5.8 x10^3/uL (4.0-11.0)
[2020-11-27 07:23] LABS: CALCIUM 8.8 mg/dL (8.5-10.1); CREATININE 0.8 mg/dL (0.6-1.0); GFR 71.8; MAGNESIUM 2.1 mg/dL (1.8-2.4)
[2020-11-27] MEDS ORDERED: ASPIRIN ENTERIC COATED 81 MG TABLET.DR. PO SCH (08:00)
[2020-11-27] MEDS: METOPROLOL TART IMMED RELEASE 25 MG TABLET. PO SCH (10:22)
[2020-11-27] MEDS: FAMOTIDINE 20 MG TABLET. PO SCH (10:26)
[2020-11-27 11:00] VITALS: BP 149/75
--- NOTE | 2020-11-27 12:08 | NUR ---
SS following for discharge planning. SS reviewed pt chart and discussed with pt RN. Pt is from home with spouse and is currently on room air. COVID19 negative. Cardiology consulted. SS will continue to follow for discharge planning.
--- NOTE | 2020-11-27 12:15 | PDOC ---
[employer] PROGRESS NOTE Date of Service DOS: DATE: 11/27/20 TIME: 12:14 Chief Complaint Chief Complaint SVT Hypertension History of Present Illness History of Present Illness 11/27/2020 Patient seen and examined Discussed with case management Discussed with RN Chart reviewed Plan is to discharge home on p.o. metoprolol Vitals/I&O Vitals/I&O: Vital Signs Date Time Temp Pulse Resp B/P (MAP) Pulse Ox O2 Delivery O2 Flow Rate FiO2 11/27/20 11:00 97.8 85 18 149/75 (99) 97 Room Air 97.8 I & O 11/26/20 11/26/20 11/27/20 15:00 23:00 07:00 Intake Total 300 ml 400 ml Output Total 400 ml Balance 300 ml 0 ml Physical Exam General: Alert, Oriented X3, Cooperative, No acute distress Heart: Regular rate Abdomen: Soft, No tenderness Extremities: No edema, Normal pulses Skin: No significant lesion Labs Labs: Laboratory Tests Test 11/26/20 13:25 11/27/20 05:50 Troponin I Quantitative 0.494 ng/mL (0.000-0.055) White Blood Count 5.8 x10^3/uL (4.0-11.0) Red Blood Count 4.45 x10^6/uL (3.50-5.40) Hemoglobin 14.1 g/dL (12.0-15.5) Hematocrit 40.7 % (36.0-47.0) Mean Corpuscular Volume 91 fL (79-100) Mean Corpuscular Hemoglobin 32 pg (25-35) Mean Corpuscular Hemoglobin Concent 35 g/dL (31-37) Red Cell Distribution Width 13.1 % (11.5-14.5) Platelet Count 216 x10^3/uL (140-400) Neutrophils (%) (Auto) 42 % (31-73) Lymphocytes (%) (Auto) 44 % (24-48) Monocytes (%) (Auto) 11 % (0-9) Eosinophils (%) (Auto) 1 % (0-3) Basophils (%) (Auto) 1 % (0-3) Neutrophils # (Auto) 2.4 x10^3/uL (1.8-7.7) Lymphocytes # (Auto) 2.5 x10^3/uL (1.0-4.8) Monocytes # (Auto) 0.7 x10^3/uL (0.0-1.1) Eosinophils # (Auto) 0.1 x10^3/uL (0.0-0.7) Basophils # (Auto) 0.1 x10^3/uL (0.0-0.2) Sodium Level 145 mmol/L (136-145) Potassium Level 4.0 mmol/L (3.5-5.1) Chloride Level 111 mmol/L (98-107) Carbon Dioxide Level 30 mmol/L (21-32) Anion Gap 4 (6-14) Blood Urea Nitrogen 11 mg/dL (7-20) Creatinine 0.8 mg/dL (0.6-1.0) Estimated GFR (Cockcroft-Gault) 71.8 Glucose Level 88 mg/dL (70-99) Calcium Level 8.8 mg/dL (8.5-10.1) Phosphorus Level 3.0 mg/dL (2.6-4.7) Magnesium Level 2.1 mg/dL (1.8-2.4) Assessment and Plan Assessmemt and Plan Problems Medical Problems: (1) SVT (supraventricular tachycardia) Status: Acute Plan is discharged home on p.o. metoprolol see dictation Comment Review of Relevant I have reviewed the following items lamin (where applicable) has been applied. Medications: Current Medications Medications (Trade) Dose Ordered Sig/Nasir Route PRN Reason Start Time Stop Time Status Last Admin Dose Admin Aspirin (Aspirin Chewable) 324 mg 1X ONCE PO 11/26/20 12:15 11/26/20 12:16 DC 11/26/20 14:43 Enoxaparin Sodium (Lovenox 80mg Syringe) 70 mg Q12HR SQ 11/26/20 17:00 11/27/20 10:26 Cyclobenzaprine HCl (Flexeril) 5 mg PRN TID PRN PO MUSCLE SPASMS 11/26/20 16:30 11/26/20 21:22 Sumatriptan Succinate (Imitrex) 50 mg PRN Q2HR PRN PO MIGRAINE HEADACHE 11/26/20 16:30 11/26/20 16:52 Famotidine (Pepcid) 20 mg BID PO 11/26/20 21:00 11/27/20 10:26 Metoprolol Tartrate (Lopressor) 25 mg BID PO 11/26/20 21:00 11/27/20 10:22 Aspirin (Ecotrin) 81 mg DAILYWBKFT PO 11/27/20 08:00 11/27/20 10:22 Justifications for Admission Other Justification Supraventricular tachycardia PINEDA WILLOUGHBY III DO Nov 27, 2020 12:15
[2020-11-27] MEDS ORDERED: METO25TA4 PO (12:54)
[2020-11-27] MEDS ORDERED: ASPI-630 PO (12:55)
[2020-11-27] MEDS ORDERED: ATOR20TA PO (13:01)
--- NOTE | 2020-11-27 13:04 | PDOC ---
CARDIO Progress Notes Date and Time Date of Service 11/27/2020 Time of Evaluation 1240 Subjective Subjective: No Chest Pain, No shortness of breath, No Palpitations Vitals Vitals Vital Signs Date Time Temp Pulse Resp B/P (MAP) Pulse Ox O2 Delivery O2 Flow Rate FiO2 11/27/20 11:00 97.8 85 18 149/75 (99) 97 Room Air 97.8 Weight Weight [ ] Input and Output Intake and Output Intake and Output 11/27/20 07:00 Intake Total 700 ml Output Total 400 ml Balance 300 ml Intake Oral 700 ml Output Urine Total 400 ml # Voids 3 Laboratory Labs Laboratory Tests Test 11/26/20 13:25 11/27/20 05:50 Troponin I Quantitative 0.494 ng/mL (0.000-0.055) White Blood Count 5.8 x10^3/uL (4.0-11.0) Red Blood Count 4.45 x10^6/uL (3.50-5.40) Hemoglobin 14.1 g/dL (12.0-15.5) Hematocrit 40.7 % (36.0-47.0) Mean Corpuscular Volume 91 fL (79-100) Mean Corpuscular Hemoglobin 32 pg (25-35) Mean Corpuscular Hemoglobin Concent 35 g/dL (31-37) Red Cell Distribution Width 13.1 % (11.5-14.5) Platelet Count 216 x10^3/uL (140-400) Neutrophils (%) (Auto) 42 % (31-73) Lymphocytes (%) (Auto) 44 % (24-48) Monocytes (%) (Auto) 11 % (0-9) Eosinophils (%) (Auto) 1 % (0-3) Basophils (%) (Auto) 1 % (0-3) Neutrophils # (Auto) 2.4 x10^3/uL (1.8-7.7) Lymphocytes # (Auto) 2.5 x10^3/uL (1.0-4.8) Monocytes # (Auto) 0.7 x10^3/uL (0.0-1.1) Eosinophils # (Auto) 0.1 x10^3/uL (0.0-0.7) Basophils # (Auto) 0.1 x10^3/uL (0.0-0.2) Sodium Level 145 mmol/L (136-145) Potassium Level 4.0 mmol/L (3.5-5.1) Chloride Level 111 mmol/L (98-107) Carbon Dioxide Level 30 mmol/L (21-32) Anion Gap 4 (6-14) Blood Urea Nitrogen 11 mg/dL (7-20) Creatinine 0.8 mg/dL (0.6-1.0) Estimated GFR (Cockcroft-Gault) 71.8 Glucose Level 88 mg/dL (70-99) Calcium Level 8.8 mg/dL (8.5-10.1) Phosphorus Level 3.0 mg/dL (2.6-4.7) Magnesium Level 2.1 mg/dL (1.8-2.4) Physical Exam HEENT: Neck Supple W Full Motion Chest: Symmetric LUNGS: Clear to Auscultation Heart: S1S2, RRR (SR) Abdomen: Soft N/T Extremities: No Edema, No Calf Tenderness Neurology: alert, oriented, follow commands Assessment Assessment 1. Tachyarrhythmia, SVT; 6mg, 12mg adenosine unsuccessful. Converted back to SR following Cardizem IV bolus. Unable to located initial EKG upon arrival. maintaining SR 2. NSTEMI; trop highest 1.1. Most probably type II, demand ischemia secondary to above. CP free. EF and WM nml Recommendations ASA, statin treadmill MPI as an outpt MCOT Continue metoprolol. Discussed vagal maneuvers Follow up Dec 31 at 1 PM Justicifation of Admission Dx: Justifications for Admission: Justification of Admission Dx: Yes ANNA GUERRERO APRN Nov 27, 2020 13:04
--- NOTE | 2020-11-27 14:03 | DS ---
DATE OF DISCHARGE: 11/27/2020 ADMITTING DIAGNOSES: Supraventricular tachycardia and hypertensive urgency. DISCHARGE DIAGNOSES: Resolving supraventricular tachycardia and resolving hypertensive urgency. PROCEDURES: None. CONSULTS: Cardiology. HOSPITAL COURSE: The patient is a pleasant, middle-aged female who presented with SVT and hypertensive urgency. We admitted her, started on negative chronotropic agents. Today, I saw her and examined her. She is doing well and wants to go home. Her enzymes are negative. Her blood pressures improved. We plan to discharge. DISPOSITION: Home. ACTIVITY: As tolerated. DIET: Low sodium. DISCHARGE MEDICATIONS: Please see the MRAD. We did put her on atorvastatin 20 a day, aspirin 81 a day, cyclobenzaprine 5 t.i.d., metoprolol 25 p.o. b.i.d. and Imitrex p.r.n. TOTAL TIME: 32 minutes. UMBERTO/CAMILLE DR: Amrik TID: [id number]
--- NOTE | 2020-11-27 15:30 | NUR ---
Discharge Note: RICKIE PEREZ [address] Discharge instructions and discharge home medications reviewed with Spouse and a copy given. All questions have been answered and understanding verbalized. The following instructions and handouts were given: metoprolol, aspirin and your heart, atorvastatin. Patient discharged to home with via ambulatory.
[2020-11-27] MEDS ORDERED: ATORVASTATIN CALCIUM 20 MG TABLET PO SCH (21:00)
== END 2020-11-27 15:30 | disposition home or self-care (01) ==
LOC: ER 20:55 → ED HOLD 23:01 → INTOOBSV 23:01 → 6 SOUTH 11-26 14:40
PROVIDERS: ADMIT Family Medicine; ATTEND Family Medicine
DX: I47.1 Supraventricular tachycardia (principal); I16.0 Hypertensive urgency; N17.0 Acute kidney failure with tubular necrosis; R77.8 Other specified abnormalities of plasma proteins; Z20.822 Contact with and (suspected) exposure to COVID-19; E66.9 Obesity, unspecified; I10 Essential (primary) hypertension; G43.909 Migraine, unspecified, not intractable, without status migrainosus
CPT/HCPCS: 36415; 71045; 80048; 80061; 83735; 83880; 84100; 84443; 84484; 85025; 87426; 92960; 93005; 93306; 96361; 96372; 96374; 96375; 99291; G0378; J0153; J1650; J3490; J7030; U0003; U0005; G0379

== ENCOUNTER → 2020-12-03 | Outpatient (CLI) | payer MEDICARE ==
[2020-11-27 11:00] VITALS: BP 149/75
[~2020-12-03] MED LIST changes: +ASPI-630 PO; +ATOR20TA PO; +CYCL5TAB PO; -LIDOCAINE 2%/EPI 1:100,000 20 ML VIAL. INJ ONE; +METO25TA4 PO; +SUMA50TA3 PO
--- NOTE | 2020-12-03 18:21 | RAD ---
MR#: [id number] Date of Study: 12/03/2020 Ordering Physician: CAIT QUEZADA, Referring Physician: FELECIA DAVIS Tech: EDGARDO Kc, ARRT (R) (N) APPROVED REPORT Test Type: Exercise Stress Nurse/Tech: Daija Yuen RN Test Indications: Tachycardia, chest pain Cardiac History: HTN, smoker Medications: See Electronic Medical Record Medical History: See Electronic Medical Record Resting ECG: SR Resting Heart Rate: 73 bpm Resting Blood Pressure: 178/87mmHg Pretest Chest Pain: None Nurse/Tech Notes Lungs CTA, S1S2 Consent: The procedure was explained to the patient in lay terms. Informed consent was witnessed. Richard eout was entered into [employer]. History and Stress Test performed by RT Cassidy (Madan) (N) Stress Symptoms No chest pain or symptoms. POST EXERCISE Reason for Termination: Reached target heart rate Target HR: Yes Max HR: 141 bpm 92% of Maximum Predicted HR: 154 bpm Exercise duration: 6:21 min:sec, 2 Stage Exercise capacity: 7METs Max Blood Pressure: 173/103mmHg Blood Pressure response to exercise: Normal blood pressure response during stress.Normal blood pressu re response during stress.Abnormal blood pressure response during stress.Abnormal increase in blood p ressure during stress.Blunted blood pressure during stress. Heart Rate response to exercise: normal response Chest Pain: No. Arrhythmia: No. ST Change: No. INTERPRETATION Stress EKG Conclusion: The resting EKG shows a sinus rhythm with nonspecific T wave changes. The stress EKG shows mild further mild T wave changes that are not diagnostic of ischemia. No EKG evidence of stress-induced ischemia. Imaging Protocol IMAGE PROTOCOL: Rest Tc-99m/stress Tc-99m 1 day Rest: Stress: Viability: Radiopharm.Tc99m [id number] Sestamibi Dose9.5mCi 33mCi Img Date 12/03/2020 12/03/2020 Inj-Img [id number]. 60min. Rest Admin Site:IV - Left AntecubitalAdministrator:RT Cassidy (R)(N) Stress Admin Site: IV - Left AntecubitalAdministrator: Darin Forbes, RT (R)(N) STRESS DATA End Diast. Vol.36.0mlLVEDV index BSA21.0ml End Syst. Vol.5.0mlLVESV index BSA3.0ml Myocardial Mass81.0gEject. Zvgpnnym03.0% Stress Scores Regional WT0.00Summed WT1.00 Regional WM0.00Summed WM1.00 LV Perfusion The stress scans show no significant defects. The rest scans show no significant defects. Nuclear imaging shows no reversible ischemia or infarct. Wall Motion LV systolic function is intact with no regional wall motion abnormalities and an ejection fraction of greater than 70%. LV Perf. Quant 17 Seg. SSS0.00 17 Seg. SRS0.00 17 Seg. SDS0.00 Stress Defect Extent (% LAD)0.00Rest Defect Extent (% LAD)0.00Rev. Defect Extent (% LAD)0.00 Stress Defect Extent (% LCX) 0.00Rest Defect Extent (% LCX)0.00Rev. Defect Extent (% LCX)0.00 Stress Defect Extent (% RCA)0.00Rest Defect Extent (% RCA)0.00Rev. Defect Extent (% RCA)0.00 Stress Defect Extent (% WHITNEY)0.00Rest Defect Extent (% WHITNEY)0.00Rev. Defect Extent (% WHITNEY)0.00 Conclusion 1. Good exercise tolerance. 2. No chest pain with exertion. 3. Mildly abnormal EKG with mild EKG changes with exertion that are not diagnostic of ischemia. 4. Nuclear imaging shows no reversible ischemia or infarct. 5. Normal left ventricular systolic function with an ejection fraction of greater than 70%. 6. Moderately low risk treadmill nuclear stress test. Signed by : Cait Quezada MD Electronically Approved : 12/03/2020 18:21:05
== END ==
LOC: NM 10:26
PROVIDERS: ATTEND Internal Medicine Cardiovascular Disease
DX: R94.31 Abnormal electrocardiogram [ECG] [EKG] (principal)
CPT/HCPCS: 78452; 93017; A9500